=== PATIENT | female | born 1970 | race Caucasian/White ===

== ENCOUNTER 2018-06-29 18:40 | Emergency (ER) | payer OTHER ==
[~2018-06-29] VITALS: Ht 167.6 cm; Wt 74.8 kg
[2018-06-29] MEDS ORDERED: NORCO 5-325 TA1 EACH PO (20:38)
[2018-06-29] MEDS ORDERED: NAPROSYN500 MG PO (20:38)
[2018-06-29] MEDS ORDERED: FLEXERIL PO (20:38)
[2018-06-29 21:09] VITALS: BP 122/71
== END 2018-06-29 21:11 | disposition home or self-care (01) ==
LOC: M.ERS 18:40
DX: S39.012A Strain of muscle, fascia and tendon of lower back, initial encounter (principal); F17.210 Nicotine dependence, cigarettes, uncomplicated; Z98.890 Other specified postprocedural states; Z88.1 Allergy status to other antibiotic agents; Z88.8 Allergy status to other drugs, medicaments and biological substances; X58.XXXA Exposure to other specified factors, initial encounter; Y93.89 Activity, other specified; Y92.89 Other specified places as the place of occurrence of the external cause; Y99.8 Other external cause status